=== PATIENT | male | born 1980 | race African-American/Black ===

== ENCOUNTER 2017-11-07 02:57 | Emergency (ER) | payer MEDICAID ==
[~2017-11-07] VITALS: Ht 170.2 cm; Wt 89.8 kg
[2017-11-07] MEDS ORDERED: NKM (03:07)
[2017-11-07 03:25] VITALS: BP 159/96
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
[2017-11-07 04:22] VITALS: BP 143/104
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
--- NOTE | 2017-11-07 16:30 | Cardiology Report ---
APPROVED REPORT EKG Measurement Heart [id number] Normal sinus rhythm Possible Left atrial enlargement Borderline ECG
== END 2017-11-07 04:26 | disposition home or self-care (01) ==
LOC: EMR 03:33
DX: R07.89 Other chest pain (principal); Z18.89 Other specified retained foreign body fragments
CPT/HCPCS: 71045; 93005; 99283